=== PATIENT | male | born 1975 | race Caucasian/White ===

== ENCOUNTER 2017-02-24 12:38 | Emergency (ER) | payer SELFPAY ==
[~2017-02-24] VITALS: Ht 182.8 cm; Wt 113.4 kg
[~2017-02-24 12:38] MED LIST: FLAXSEED OIL1 CAP PO; KEFLEX500 MG PO; MULTIPLE VITAMI1 CAP PO; PROTONIX40 MG PO
[2017-02-24] MEDS ORDERED: EYEDROPS (12:47)
[2017-02-24 13:36] LABS: BASO % 0.5 % (0.0-1.0); EOS # 0.1 10*3/uL (0.0-0.4); HEMATOCRIT 41.4 % (42.0-52.0); LYMPH # 1.3 10*3/uL (1.3-4.4); LYMPH % 19.9 % (27.0-41.0); MEAN CELL VOLUME 87.7 fl (80.0-94.0); MEAN CORPUSCULAR HGB 29.7 pg (27.0-31.0); MEAN CORPUSCULAR HGB CONC 33.8 g/dl (33.0-37.0); MEAN PLATELET VOLUME 10.7 fl (9.6-12.3); MONO # 0.4 10*3/uL (0.1-1.0); MONO % 6.2 % (3.0-9.0); NEUT # 4.7 10*3/uL (2.3-7.9); NEUT % 71.2 % (47.0-73.0); PLATELET COUNT AUTOMATED 204 10*3/uL (130-400); RED BLOOD COUNT 4.72 10*6/uL (4.50-5.90); RED CELL DISTRI WIDTH 12.7 % (0-14.5); WHITE BLOOD COUNT 6.6 10*3/uL (4.8-10.8)
[2017-02-24 13:52] LABS: ALBUMIN 3.9 gm/dl (3.1-4.5); ALKALINE PHOSPHATASE 60 U/L (45-117); BILIRUBIN, TOTAL 0.5 mg/dl (0.2-1.0); BUN 16 mg/dl (7-24); CARBON DIOXIDE 26 mmol/L (21-32); CHLORIDE 108 mmol/L (98-107); CPK 157 U/L (39-308); EST GLOM FILT AFRICAN AMERICAN > 60 ml/min; GLUCOSE 121 mg/dL (65-99); MAGNESIUM 2.2 mg/dL (1.5-2.1); POTASSIUM 3.6 mmol/L (3.5-5.1); SGOT/AST 15 IU/L (3-35); SGPT/ALT 31 U/L (12-78); SODIUM 141 mmol/L (136-145); TOTAL PROTEIN 6.9 gm/dL (6.4-8.2)
[2017-02-24 13:56] LABS: TROPONIN I < 0.015 ng/ml (<0.045)
[2017-02-24 13:59] LABS: THYROID STIM HORMONE (HS) 0.752 uIU/ml (0.358-4.75)
[2017-02-24 14:08] LABS: BILIRUBIN NEGATIVE (NEGATIVE); BLOOD NEGATIVE (NEGATIVE); CLARITY SL CLOUDY (CLEAR); COLOR YELLOW (YELLOW); GLUCOSE NEGATIVE (NEGATIVE); KETONE NEGATIVE (NEGATIVE); LEUKO ESTERASE NEGATIVE (NEGATIVE); NITRITE NEGATIVE (NEGATIVE); PH 5.5 (5.0-9.0); PROTEIN NEGATIVE (NEGATIVE); SPECIFIC GRAVITY >= 1.030 (1.005-1.030); UROBILINOGEN 0.2 E.U./dl (0.2-1.0)
[2017-02-24 14:23] LABS: MUCOUS 1+; RBC 0-2 rbc/hpf (0-2); URINE REFLEX COMMENT NO (NO); WBC 0-2 wbc/hpf (0-5)
[2017-02-24 14:57] VITALS: BP 135/83
[2017-02-24] MEDS ORDERED: ZOFRAN4 MG PO (15:40)
== END 2017-02-24 15:28 | disposition home or self-care (01) ==
LOC: ED 12:38
PROVIDERS: Internal Medicine
DX: A08.4 Viral intestinal infection, unspecified (principal); R10.9 Unspecified abdominal pain; R19.7 Diarrhea, unspecified; Z90.49 Acquired absence of other specified parts of digestive tract; Z87.891 Personal history of nicotine dependence

== ENCOUNTER 2019-03-16 09:18 | Emergency (ER) | payer SELFPAY ==
[~2019-03-16] VITALS: Ht 180.3 cm; Wt 117.5 kg
--- NOTE | ~2019-03-16 | EKG ---
[place], [place] ELECTROCARDIOGRAM REPORT NAME: HERBERTH JIM UNIT #: [id number] ROOM: DOCTOR: EPIPHANY DRAFT REPORT BIRTHDATE: [address] 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
--- NOTE | ~2019-03-16 | EKG ---
[place], [place] ELECTROCARDIOGRAM REPORT NAME: HERBERTH JIM UNIT #: [id number] ROOM: DOCTOR: EPIPHANY DRAFT REPORT BIRTHDATE: [birth year] [facility] Test Date: 2019-03-16 Test Time: 12:27:35 Pat Name: HERBERTH JIM Department: Room: d/c Gender: M [employer] Leader: Peggy Tse : 1975 Requested By: JUANA MCKEON Order Number: [id number] Reading MD: Tahir Corona MD Measurements Intervals [place] Rate: 67 P: 20 NC: 120 QRS: 51 QRSD: 92 T: 26 QT: 385 QTc: 407 Interpretive Statements Sinus rhythm Minimal ST elevation, anterior leads Electronically Signed On 03-17-2019 14:48:23 PDT by Tahir Corona MD CM:[email or web address]:ELECTROCARDIOGRAM REPORT [id number] JUANA FLORES DRAFT REPORT JUANA MCKEON MD
[2019-03-16 09:18] VITALS: BP 123/67
[~2019-03-16 09:18] MED LIST changes: +EYEDROPS; +ZOFRAN4 MG PO
[2019-03-16 09:36] LABS: BASO # 0.1 10*3/uL (0.0-0.1); BASO % 0.7 % (0.0-1.0); EOS # 0.4 10*3/uL (0.0-0.4); EOS % 5.8 % (1.0-4.0); HEMATOCRIT 46.7 % (42.0-52.0); HEMOGLOBIN 15.8 g/dl (14.0-18.0); LYMPH # 2.7 10*3/uL (1.3-4.4); LYMPH % 35.9 % (27.0-41.0); MEAN CELL VOLUME 89.8 fl (80.0-94.0); MEAN CORPUSCULAR HGB 30.4 pg (27.0-31.0); MEAN CORPUSCULAR HGB CONC 33.8 g/dl (33.0-37.0); MEAN PLATELET VOLUME 10.9 fl (9.6-12.3); MONO # 0.4 10*3/uL (0.1-1.0); MONO % 5.4 % (3.0-9.0); NEUT # 3.9 10*3/uL (2.3-7.9); NEUT % 52.1 % (47.0-73.0); PLATELET COUNT AUTOMATED 218 10*3/uL (130-400); RED CELL DISTRI WIDTH 12.3 % (0-14.5); WHITE BLOOD COUNT 7.6 10*3/uL (4.8-10.8)
[2019-03-16 09:47] LABS: ACT PARTIAL THROMBO TIME 24.2 SECONDS (20.0-32.1)
[2019-03-16 09:53] LABS: ALBUMIN 3.9 gm/dl (3.1-4.5); ALKALINE PHOSPHATASE 57 U/L (45-117); BUN 16 mg/dl (7-24); CHLORIDE 107 mmol/L (98-107); POTASSIUM 4.1 mmol/L (3.5-5.1); SGOT/AST 17 IU/L (3-35); SGPT/ALT 41 U/L (12-78); SODIUM 140 mmol/L (136-145); TOTAL PROTEIN 6.9 gm/dL (6.4-8.2)
[2019-03-16 10:02] LABS: TROPONIN I < 0.015 ng/ml (<0.045)
--- NOTE | 2019-03-16 10:25 | NUR ---
PT HAS DECLINED ADMISSION TO THE HOSPITAL. DR MCKEON IN TO SEE PT. HE WILL STAY FOR A SECOND TROPONIN AND THEN SIGN OUT AMA. HE IS AWAKE AND ALERT. FAMILY MEMBER WITH PT NOW. CHERRI MERINO
[2019-03-16 10:45] VITALS: BP 127/61
--- NOTE | 2019-03-16 11:39 | NUR ---
PT HAS REMAINED AWAKE AND ALERT. NO CO DISCOMFORT,NO DISTRESS NOTED. WAITING TO HAVE SECOND TROPONIN DONE. PT WAS PROVIDED WITH LUNCH. CHERRI MERINO
--- NOTE | 2019-03-16 12:06 | NUR ---
REPEAT TROPONIN LEVEL IS BEING DRAWN AT THIS TIME. NO CHANGE NOTED IN BEATRIZ HARLEY RN
[2019-03-16 12:11] VITALS: BP 127/68
== END 2019-03-16 13:00 | disposition left against medical advice (07) ==
LOC: ED 09:18 → EDHOLD 10:16 → ED 10:16
PROVIDERS: Emergency Medicine
DX: R07.89 Other chest pain (principal); L30.9 Dermatitis, unspecified; R10.10 Upper abdominal pain, unspecified; R10.13 Epigastric pain; R11.0 Nausea; R61 Generalized hyperhidrosis; R42 Dizziness and giddiness; R06.02 Shortness of breath; R55 Syncope and collapse; Z90.49 Acquired absence of other specified parts of digestive tract; Z87.891 Personal history of nicotine dependence